=== PATIENT | female | born 2000 | race African-American/Black ===

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

== ENCOUNTER 2023-12-18 12:39 | Emergency (ER) | payer SELFPAY ==
[~2023-12-18] VITALS: Ht 165.1 cm; Wt 54.5 kg
[~2023-12-18 12:39] MED LIST: ONDA4TAB5 MT
[2023-12-18 13:18] VITALS: O2SAT 100
[2023-12-18] MEDS: FLUORESCEIN SODIUM 1MG/STRIP LEFTEYE ONE (14:30)
[2023-12-18] MEDS: TETRACAINE 0.5% OPHTH DROPS 4ML EACHEYE ONE (15:34)
[2023-12-18] MEDS ORDERED: OCUFLX EACHEYE (15:44)
[2023-12-18 16:10] VITALS: BP 122/76; PULSE 86; RESP 18; TEMP 97.9
== END 2023-12-18 16:14 | disposition home or self-care (01) ==
LOC: ER 12:39
DX: H10.32 Unspecified acute conjunctivitis, left eye (principal)
CPT/HCPCS: 99283